=== PATIENT | female | born 1930 | race Caucasian/White ===

== ENCOUNTER 2017-09-03 10:33 | Inpatient (IN) | payer OTHER ==
[~2017-09-03] VITALS: Ht 162.6 cm; Wt 84.1 kg
[2017-09-03 11:14] LABS: HEMOGLOBIN 10.1 G/DL (11.9-15.5); MCH 26.6 PG (29.0-34.0); MCHC 31.6 G/DL (30.0-36.0); MCV 84.4 FL (83-99); PLATELET COUNT 291 K/uL (156-360); RBC DIS.WIDTH-CV 19.9 % (11.8-14.6); RBC DIS.WIDTH-SD 61.6 % (39-53); RED BLOOD COUNT 3.79 M/uL (3.80-5.20)
[2017-09-03 11:23] LABS: CHLORIDE 101 mEq/L (99-109); POTASSIUM 4.2 mEq/L (3.7-5.4); SODIUM 134 mEq/L (136-147)
[2017-09-03 11:24] LABS: GLUCOSE 360 mg/dL (70-99)
[2017-09-03 11:28] LABS: GFR ESTIMATE (CALCULATED) 56 mL/min/
[2017-09-03 11:29] LABS: UREA NITROGEN (BUN) 19 mg/dL (9-23)
[2017-09-03 11:35] LABS: TROP-I INTERPRETATION INDETERMINATE; TROPONIN-I 0.44 ng/mL (0.0-0.30)
[2017-09-03 13:22] LABS: PTT 31.6 SEC (25-37)
[2017-09-03] MEDS ORDERED: PLAVIX75 MG PO (15:06)
[2017-09-03] MEDS ORDERED: CERTAVITE WITH1 EAC1 PO (15:06)
[2017-09-03] MEDS ORDERED: CRANBERRY450 M1 PO (15:08)
[2017-09-03] MEDS ORDERED: LASIX20 MG PO (15:11)
[2017-09-03] MEDS ORDERED: IMDUR30 MG PO (15:11)
[2017-09-03] MEDS ORDERED: LEVEMIR100 UNIT/2 SC ×2 (15:13→16:21)
[2017-09-03] MEDS ORDERED: NORVASC10 MG PO (15:18)
[2017-09-03] MEDS ORDERED: MELATIN3 MG PO (15:18)
[2017-09-03] MEDS ORDERED: MIRALAX17 GM PO ×2 (15:20→15:50)
[2017-09-03] MEDS ORDERED: ZOLOFT50 MG PO (15:21)
[2017-09-03] MEDS ORDERED: SYNTHROID75 MCG PO (15:22)
[2017-09-03] MEDS ORDERED: LOPRESSOR25 MG PO (15:26)
[2017-09-03] MEDS ORDERED: LOPRESSOR50 MG PO (15:26)
[2017-09-03] MEDS ORDERED: PATANOL OP100 DROP/5 BOTH EYES (15:27)
[2017-09-03] MEDS ORDERED: PROTONIX40 MG PO (15:29)
[2017-09-03] MEDS ORDERED: PRESERVISIO1 CAPSULE BC (15:29)
[2017-09-03] MEDS ORDERED: ACCUPRIL40 MG PO (15:30)
[2017-09-03] MEDS ORDERED: SINEMET 25-2501 EAC1 PO (15:31)
[2017-09-03] MEDS ORDERED: COMTAN200 MG PO (15:32)
[2017-09-03] MEDS ORDERED: NOVOLOG 10100 UNITS/ SC ×2 (15:37→16:17)
[2017-09-03] MEDS ORDERED: BICARSIM FORTE125 MG PO (15:38)
[2017-09-03] MEDS ORDERED: TYLENOL REGULA325 MG PO (15:44)
[2017-09-03] MEDS ORDERED: COOL THERAPY118 ML TP (15:45)
[2017-09-03] MEDS ORDERED: DULCOLAX10 MG PR (15:46)
[2017-09-03] MEDS ORDERED: ALUM-MAG HYDRO360 ML PO (15:48)
[2017-09-03] MEDS ORDERED: MILK OF MAGN PO (15:49)
[2017-09-03] MEDS ORDERED: NITROSTAT0.4 MG SL (15:51)
[2017-09-03] MEDS ORDERED: PRUNE JUICE PO (15:52)
[2017-09-03] MEDS ORDERED: GAS RELIEF125 MG PO (15:53)
[2017-09-03] MEDS ORDERED: COUGH DROPS1 EACH MM (15:54)
[2017-09-03] MEDS ORDERED: TUMS X-STR300 MG PO (16:02)
[2017-09-03 18:46] LABS: TROP-I INTERPRETATION POSITIVE
[2017-09-03 18:52] LABS: TROPONIN-I 1.82 ng/mL (0.0-0.30)
[2017-09-03 20:00] VITALS: BP 134/60
[2017-09-03 23:55] VITALS: BP 162/72
[2017-09-04 01:46] LABS: TROP-I INTERPRETATION POSITIVE
[2017-09-04 01:48] LABS: TROPONIN-I 2.51 ng/mL (0.0-0.30)
[2017-09-04 03:57] VITALS: BP 138/65
[2017-09-04 07:08] VITALS: BP 161/73
[2017-09-04 08:42] LABS: HEMATOCRIT 32.5 % (36.0-46.0); MCHC 30.8 G/DL (30.0-36.0); MCV 84.4 FL (83-99); PLATELET COUNT 276 K/uL (156-360); RBC DIS.WIDTH-CV 20.1 % (11.8-14.6); RBC DIS.WIDTH-SD 61.9 % (39-53); RED BLOOD COUNT 3.85 M/uL (3.80-5.20); WHITE BLOOD COUNT 7.7 K/uL (4.1-10.2)
[2017-09-04 08:58] LABS: BASOPHIL (%) 0.3 % (0-1); EOSINOPHIL (%) 1.6 % (0-5); EOSINOPHIL COUNT 0.1 K/uL (0-0.3); IMMATURE GRANULOCYTE (%) 0.5 % (0.0-0.7); LYMPHOCYTE COUNT 1.5 K/uL (1.0-2.8); MONOCYTE COUNT 0.8 K/uL (0-0.8); NEUTROPHIL (%) 66.6 % (45-76); NEUTROPHIL COUNT 5.1 K/uL (1.8-6.4)
[2017-09-04 09:04] LABS: CHLORIDE 104 MEQ/L (99-109); CREATININE 0.8 MG/DL (0.6-1.3); GFR ESTIMATE (CALCULATED) > 59 mL/min/; POTASSIUM 3.8 MEQ/L (3.7-5.4); SODIUM 139 MEQ/L (136-147); UREA NITROGEN (BUN) 13 mg/dL (9-23)
[2017-09-04 09:08] LABS: GLUCOSE 90 mg/dL (70-99)
[2017-09-04 11:07] VITALS: BP 125/58
[2017-09-04 15:03] VITALS: BP 136/60
[2017-09-04 20:00] VITALS: BP 134/62
[2017-09-04 23:55] VITALS: BP 167/72
[2017-09-05] VITALS (7 sets, daily range): BP systolic 103–154; BP diastolic 58–67
[2017-09-06 04:00] VITALS: BP 130/75
[2017-09-06 05:22] LABS: BASOPHIL (%) 0.3 % (0-1); EOSINOPHIL COUNT 0.1 K/uL (0-0.3); HEMATOCRIT 31.1 % (36.0-46.0); HEMOGLOBIN 9.6 G/DL (11.9-15.5); IMMATURE GRANULOCYTE (%) 0.6 % (0.0-0.7); LYMPHOCYTE (%) 25.2 % (15-42); LYMPHOCYTE COUNT 1.8 K/uL (1.0-2.8); MCHC 30.9 G/DL (30.0-36.0); MCV 84.3 FL (83-99); MONOCYTE (%) 12.3 % (3-12); MONOCYTE COUNT 0.9 K/uL (0-0.8); NEUTROPHIL (%) 59.6 % (45-76); NEUTROPHIL COUNT 4.2 K/uL (1.8-6.4); PLATELET COUNT 278 K/uL (156-360); RBC DIS.WIDTH-CV 19.9 % (11.8-14.6); RBC DIS.WIDTH-SD 61.9 % (39-53); RED BLOOD COUNT 3.69 M/uL (3.80-5.20); WHITE BLOOD COUNT 7.1 K/uL (4.1-10.2)
[2017-09-06 06:02] LABS: CHLORIDE 104 MEQ/L (99-109); GFR ESTIMATE (CALCULATED) 56 mL/min/; POTASSIUM 4.1 MEQ/L (3.7-5.4); SODIUM 139 MEQ/L (136-147); UREA NITROGEN (BUN) 17 mg/dL (9-23)
[2017-09-06 06:03] LABS: GLUCOSE 200 mg/dL (70-99)
[2017-09-06 07:17] VITALS: BP 151/69
[2017-09-06] MEDS ORDERED: IMDUR60 MG PO (11:06)
== END 2017-09-06 15:32 | DRG 282 ==
LOC: EME 10:33 → 4EAST 13:40 → EDOF 13:40 → ENRESERV 13:43 → 4EAST 19:20
PROVIDERS: Emergency Medicine; Internal Medicine
DX: I21.4 Non-ST elevation (NSTEMI) myocardial infarction (principal); E11.65 Type 2 diabetes mellitus with hyperglycemia; I25.10 Atherosclerotic heart disease of native coronary artery without angina pectoris; I11.0 Hypertensive heart disease with heart failure; E03.9 Hypothyroidism, unspecified; G20 Parkinson's disease; I50.9 Heart failure, unspecified; Z66 Do not resuscitate; I48.91 Unspecified atrial fibrillation; E78.5 Hyperlipidemia, unspecified; I73.9 Peripheral vascular disease, unspecified; K21.9 Gastro-esophageal reflux disease without esophagitis; Z79.4 Long term (current) use of insulin; R29.6 Repeated falls; Z95.5 Presence of coronary angioplasty implant and graft; Z95.1 Presence of aortocoronary bypass graft; Z87.11 Personal history of peptic ulcer disease; Z79.899 Other long term (current) drug therapy; Z79.01 Long term (current) use of anticoagulants
CPT/HCPCS: 71046; 80048; 82948; 84484; 85025; 85027; 85610; 85730; 87641; 93005; 93306; 99281; 99285; J1644; J1815